=== PATIENT | male | born 1960 | race African-American/Black ===

== ENCOUNTER 2016-12-21 19:27 | Emergency (ER) | payer MEDICARE, OTHER ==
[~2016-12-21] VITALS: Ht 172.7 cm; Wt 90.0 kg
[2016-12-21] MEDS ORDERED: DIAZEPAM 2 MG TABLET PO ONE (22:45)
[2016-12-22] MEDS ORDERED: TRAZODONE HCL 50MG TABLET PO ONE (04:15)
[2016-12-22 12:28] VITALS: BP 143/81
== END 2016-12-22 13:13 | disposition home or self-care (01) ==
LOC: ER 22:55
DX: M54.40 Lumbago with sciatica, unspecified side (principal); F41.9 Anxiety disorder, unspecified; F31.9 Bipolar disorder, unspecified; F12.10 Cannabis abuse, uncomplicated
CPT/HCPCS: 72100; 99284

== ENCOUNTER 2017-01-14 11:11 | Emergency (ER) | payer MEDICARE, OTHER ==
[~2017-01-14] VITALS: Ht 172.7 cm; Wt 82.0 kg
[2017-01-14] MEDS ORDERED: KETOROLAC 60MG/2ML VIAL IM ONE (13:00)
[2017-01-14] MEDS ORDERED: IBUPROFEN 600MG TABLET PO ONE (13:15)
[2017-01-14 13:52] VITALS: BP 148/78
== END 2017-01-14 15:00 | disposition home or self-care (01) ==
LOC: ER 11:12
DX: F41.9 Anxiety disorder, unspecified (principal); F12.10 Cannabis abuse, uncomplicated; F31.9 Bipolar disorder, unspecified
CPT/HCPCS: 99284; J1885

== ENCOUNTER 2020-08-11 22:33 | Emergency (ER) | payer MEDICAID, MEDICARE, OTHER ==
[~2020-08-11] VITALS: Ht 170.2 cm; Wt 77.0 kg
[2020-08-11 22:35] VITALS: BP 140/80
== END 2020-08-12 | disposition home or self-care (01) ==
LOC: ER 22:33
DX: F41.0 Panic disorder [episodic paroxysmal anxiety] (principal); F43.0 Acute stress reaction; H54.7 Unspecified visual loss; X58.XXXA Exposure to other specified factors, initial encounter; Y93.89 Activity, other specified; Y92.59 Other trade areas as the place of occurrence of the external cause; F31.9 Bipolar disorder, unspecified
CPT/HCPCS: 99283

== ENCOUNTER 2020-08-12 03:09 | Emergency (ER) | payer OTHER ==
[~2020-08-12] VITALS: Ht 177.8 cm; Wt 90.0 kg
[2020-08-12 04:33] VITALS: BP 140/82
== END 2020-08-12 05:00 | disposition home or self-care (01) ==
LOC: ER 03:09
DX: F41.0 Panic disorder [episodic paroxysmal anxiety] (principal); F14.21 Cocaine dependence, in remission; R03.0 Elevated blood-pressure reading, without diagnosis of hypertension
CPT/HCPCS: 93005; 99283

== ENCOUNTER 2020-08-16 01:29 | Emergency (ER) | payer OTHER ==
[~2020-08-16] VITALS: Ht 172.7 cm; Wt 90.0 kg
[2020-08-16 03:59] VITALS: BP 165/93
== END 2020-08-16 04:35 | disposition home or self-care (01) ==
LOC: ER 01:29
DX: F41.0 Panic disorder [episodic paroxysmal anxiety] (principal); F12.10 Cannabis abuse, uncomplicated; F14.10 Cocaine abuse, uncomplicated
CPT/HCPCS: 99281

== ENCOUNTER 2020-08-16 14:48 | Emergency (ER) | payer OTHER ==
[~2020-08-16] VITALS: Ht 180.3 cm; Wt 77.0 kg
[2020-08-16] MEDS ORDERED: GABAPENTIN 300MG CAPSULE PO NR (15:30)
[2020-08-16 16:26] VITALS: BP 150/78
== END 2020-08-16 16:26 | disposition home or self-care (01) ==
LOC: ER 14:55
DX: F41.0 Panic disorder [episodic paroxysmal anxiety] (principal); F17.200 Nicotine dependence, unspecified, uncomplicated; F14.10 Cocaine abuse, uncomplicated; F15.10 Other stimulant abuse, uncomplicated; F12.10 Cannabis abuse, uncomplicated; F19.10 Other psychoactive substance abuse, uncomplicated; I10 Essential (primary) hypertension; Z88.8 Allergy status to other drugs, medicaments and biological substances
CPT/HCPCS: 99283

== ENCOUNTER 2020-08-16 19:31 | Emergency (ER) | payer OTHER ==
[~2020-08-16] VITALS: Ht 182.9 cm; Wt 90.0 kg
[2020-08-16 19:55] VITALS: BP 132/90
== END 2020-08-16 22:50 | disposition home or self-care (01) ==
LOC: ER 19:31
DX: Z76.0 Encounter for issue of repeat prescription (principal); F14.10 Cocaine abuse, uncomplicated; F12.10 Cannabis abuse, uncomplicated; I10 Essential (primary) hypertension; Z88.8 Allergy status to other drugs, medicaments and biological substances
CPT/HCPCS: 93005; 99283

== ENCOUNTER 2020-12-12 08:31 | Emergency (ER) | payer OTHER ==
[~2020-12-12] VITALS: Ht 177.8 cm; Wt 73.0 kg
[2020-12-12 08:32] VITALS: BP 120/90
[2020-12-12 09:08] LABS: BASOPHILS % 0.6 % (0.0-2.0); EOSINOPHILS % 1.4 % (0.0-5.0); HEMATOCRIT. 41.5 % (42.0-52.0); HEMOGLOBIN. 13.3 g/dL (14.0-18.0); LYMPHOCYTES % 26.8 % (20.0-50.0); MEAN CORPUSCULAR HEMOGLOBIN 28.6 pg (28.0-32.0); MEAN CORPUSCULAR VOLUME 88.8 fL (80.0-94.0); MEAN PLATELET VOLUME 7.7 fl (7.4-10.4); MONOCYTES % 4.5 % (2.0-8.0); NEUTROPHILS % 66.7 % (40.0-76.0); PLATELET 270 x1000/uL (130-400); RED BLOOD CELL COUNT 4.67 mill/uL (4.7-6.1); RED CELL DISTRIBUTION WIDTH 14.6 % (11.6-14.6)
[2020-12-12 09:11] LABS: CHLORIDE 105 mEq/L (98-107)
[2020-12-12 09:14] LABS: CLARITY URINE CLEAR (CLEAR); COLOR URINE YELLOW (YELLOW); KETONES URINE NEGATIVE (NEGATIVE); LEUKOCYTE ESTERASE URINE NEGATIVE (NEGATIVE); NITRITE URINE NEGATIVE (NEGATIVE); OCCULT BLOOD URINE NEGATIVE (NEGATIVE); PH URINE >=9.0 (4.5-8.0); PROTEIN URINE NEGATIVE (NEGATIVE); SPECIFIC GRAVITY URINE 1.019 (1.005-1.030)
[2020-12-12 09:15] LABS: ETHANOL BLOOD < 10 mg/dL
[2020-12-12 09:37] LABS: *AMPHETAMINES SCREEN URINE NEGATIVE (NEGATIVE); *BARBITURATES SCREEN URINE NEGATIVE (NEGATIVE); *BENZODIAZEPINES SCREEN URINE NEGATIVE (NEGATIVE)
[2020-12-12 09:38] LABS: *COCAINE SCREEN URINE NEGATIVE (NEGATIVE); CANNABINOID URINE SCREEN PRESUMTIVE POSITIVE (NEGATIVE); METHADONE URINE SCREEN NEGATIVE (NEGATIVE); OPIATES URINE SCREEN NEGATIVE (NEGATIVE); PHENCYCLIDINE URINE SCREEN NEGATIVE (NEGATIVE)
== END 2020-12-12 11:32 | disposition left against medical advice (07) ==
LOC: ER 08:31
DX: G89.29 Other chronic pain (principal); M25.561 Pain in right knee; R45.851 Suicidal ideations; F31.9 Bipolar disorder, unspecified; I10 Essential (primary) hypertension; H54.7 Unspecified visual loss; Z59.0 Homelessness; Z87.828 Personal history of other (healed) physical injury and trauma
CPT/HCPCS: 36415; 73562; 80053; 80305; 80307; 80320; 80329; 81003; 85025; 99284; G0480